=== PATIENT | female | born 1980 | race Caucasian/White ===

== ENCOUNTER → 2024-06-23 | Outpatient (CLI) | payer BC, SELFPAY ==
--- NOTE | 2024-06-23 16:30 | XR_ITS ---
Examination: CT brain head without contrast. 2-D sagittal coronal reconstructions Date and time of exam:June 23, 2024 1715 hours INDICATIONS: Headaches one month CTDI: vol (mGy):51.4 DLP: (mGycm):1017 Technique: Multiple CT axial sections of the brain have been obtained, 5 mm slice thickness. Contrast has not been administered. 2-D sagittal, coronal reconstructions have been obtained Low dose protocols were performed. One or more of the following dose reduction techniques were used; automated exposure control, adjustment of the mA and/or KV according to patient size, use of iterative reconstruction technique. Findings: No significant ventricular enlargement. Intra-axial or extra-axial hemorrhage density is not seen. No mass effect or midline shift Basal cisterns are not remarkable. Fourth ventricle is midline. 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
== END | disposition home or self-care (01) ==
LOC: CCTX 16:14
PROVIDERS: PCP Family Medicine; Referring Provider Registered Nurse; Visit Provider Registered Nurse
DX: R22.0 Localized swelling, mass and lump, head (principal)
CPT/HCPCS: 70450

== ENCOUNTER 2024-10-14 09:12 | Emergency (ER) | payer BC, SELFPAY ==
[2024-10-14 09:27] VITALS: BP 160/88; PULSE 80; RESP 18; TEMP 36.6; O2SAT 99; BMI 37.9
--- NOTE | 2024-10-14 09:31 | XR_ITS ---
Examination: Breast ultrasound, unilateral, left Date and time of exam: October 14, 2024 1011 hours INDICATIONS: Palpable lump in the left breast 10 days, patient being treated for mastitis Technique: Real-time aguilar scale ultrasonographic imaging performed left breast including all 4 quadrants as well as nipple retroareolar and axillary region. Findings: 9:00 isoechoic hyperechoic mass 3.1 x 0.7 x 1.9 cm, partially indistinct margins IMPRESSION: 9:00 mass as above, differential would include neoplastic mass, abscess, clinical correlation advised, short-term follow-up ultrasound recommended as well as diagnostic mammography
--- NOTE | 2024-10-14 09:31 | XR_ITS ---
Examination: PA lateral chest 2 views TECHNIQUE: Upright PA lateral chest 2 views Date and time: October 14, 2024 0952 hours INDICATIONS: Shortness of breath breast pain today FINDINGS: Subtle increased markings at the right base Normal heart size Intact osseous structures IMPRESSION: Suspicious for early right base pneumonia
--- NOTE | 2024-10-14 09:36 | PD.EDRME ---
Rapid Medical Screening Exam RME Arrival date/time: 10/14/24 09:12 44-year-old female presents to the emergency department today for complaint of left-sided breast pain reports a nodule to the left breast Chief Complaint: Skin/Abscess/Foreign Body Vital signs: Vital Signs Temperature 97.9 F 10/14/24 09:27 Pulse Rate 80 10/14/24 09:27 Respiratory Rate 18 10/14/24 09:27 Blood Pressure 160/88 H 10/14/24 09:27 Pulse Oximetry (%) 99 10/14/24 09:27 Oxygen Delivery Method Room Air 10/14/24 09:27
[2024-10-14 10:34] LABS: Basophils % (Auto) 1 % (0-2.5); Eosinophils # (Auto) 0.2 Thou/mm3 (0.0-0.5); Eosinophils % (Auto) 3 % (0-10); Hematocrit 40.4 % (36.0-46.0); Hemoglobin 14.6 g/dL (12.0-16.0); Immature Granulocytes % (Auto) 0 % (0-0); Immature Granulocytes Auto 0.02 Thou/mm3 (0.00-0.00); Lymphocytes # (Auto) 2.1 Thou/mm3 (1.0-4.8); Lymphocytes % (Auto) 26 % (10-50); Mean Corpuscular HGB Conc 36.1 g/dl (31.0-37.0); Mean Corpuscular Hemoglobin 31.2 pg (25.0-35.0); Mean Corpuscular Volume 86 fL (80-100); Monocytes # (Auto) 0.6 Thou/mm3 (0.0-0.8); Monocytes % (Auto) 8 % (0-12); Neutrophils # (Auto) 5.1 Thou/mm3 (1.8-7.7); Neutrophils % (Auto) 64 % (37-80); Nucleated Red Blood Cell % 0 /100 WBC (0); Platelet Count 201 Thou/mm3 (140-440); RDW Standard Deviation 38.9 fL (36.4-46.3); Red Blood Count 4.68 Miln/mm3 (4.00-5.20)
[2024-10-14 10:52] LABS: HCG,Qualitative Serum Negative
[2024-10-14 10:54] LABS: Alanine Aminotransferase 28 U/L (10-49); Albumin, Serum 4.5 gm/dL (3.5-5.0); Albumin/Globulin Ratio 1.5 (1.2-2.2); Alkaline Phosphatase 58 U/L (46-116); Anion Gap 7 (7-16); Aspartate Amino Transferase 19 U/L (0-34); BUN/Creatinine Ratio 11 Ratio (12-20); Bilirubin,Total 0.6 mg/dL (0.3-1.2); Blood Urea Nitrogen 9 mg/dL (9-23); C-Reactive Protein < 0.5 mg/dL (0.0-0.9); Calcium 8.7 mg/dL (8.3-10.6); Calcium (Corrected) 8.7 mg/dL (8.5-10.1); Carbon Dioxide 25.1 mMol/L (20.0-31.0); Chloride 107 mMol/L (98-107); Creatinine (Component) 0.8 mg/dL (0.6-1.3); Estimated Creatinine Clearance 99.5 mL/min (>60); Globulin 3.1 gm/dL (2.3-3.5); Glucose 98 mg/dL (74-106); Osmolality,Calculated 276 (275-295); Sodium 139 mMol/L (136-145); Total Protein 7.6 gm/dL (5.7-8.2); eGFR > 60 See Note
--- NOTE | 2024-10-14 12:19 | EDNOTE_ITS ---
ED General RME/HPI General Chief complaint: Skin/Abscess/Foreign Body Stated complaint: PAINFUL LUMP IN LEFT BREAST X 10 DAYS; SEEN PCP US Time Seen by Provider: 10/14/24 11:26 Arrival date/time: 10/14/24 09:12 44-year-old female presents to the ED with a complaint of left-sided lateral breast pain and medial nodule. Daughter was recently seen at [facility] for a breast abscess. She states she does have a small lateral area of erythema. She has been applying antibiotic ointment to it. She has previously had diagnostic mammos of her right breast which showed fibroglandular disease. Mode of arrival: ambulatory Limitations: no limitations RME / HPI RME / HPI narrative: 10/14/24 09:12 44-year-old female presents to the emergency department today for complaint of left-sided breast pain reports a nodule to the left breast Related Data Previous Rx's ?Medication ?Instructions ?Recorded clindamycin HCl 300 mg capsule 300 mg PO Q6H 10 days # 40 caps 10/14/24 meloxicam 15 mg tablet 15 mg PO QDAY #10 tabs 10/14 Allergies Allergy/AdvReac Type Severity Reaction Status Date / Time No Known Allergies Allergy Mild NONE Uncoded 10/14/24 09:18 Review of Systems Review of Systems Systems Reviewed: All systems reviewed, normal except as documented Past Medical History Past Medical History Comments PMH COMMENT: Fibroglandular breast. ED Exam Narrative Physical exam: 44-year-old female, no acute distress. Approximate 1.5 to 2 cm area of mild erythema with mild tenderness noted to the left lateral breast between 2 to 3 o'clock position. Small mass noted at 9 o'clock position medial left breast, Nontender. General Limitations: Present no limitations General appearance: Present alert and in no apparent distress Head Head exam: Present atraumatic and normal inspection Eye Eye exam: Present normal appearance; Absent scleral icterus or conjunctival injection ENT ENT exam: Present normal exam Neck Neck exam: Present normal inspection Chest Chest inspection: Present normal inspection Respiratory Respiratory exam: Absent respiratory distress Cardiovascular Cardiovascular exam: Present regular rate and normal rhythm Abdominal Exam Abdominal exam: Absent distention Extremities Exam Extremities exam: Present normal inspection Back Exam Back exam: Present full ROM Neurological Exam Neurological exam: Present alert and oriented X3 Psychiatric Psychiatric exam: Present normal affect and normal mood Skin Skin exam: Present warm, dry, intact, normal color and erythema (Approximate 1.5 to 2 cm area of mild erythema noted to the left lateral breast between 2 to 3 o'clock position. Freely movable nontender mass noted to the 9 o'clock position of left breast near areola.) Course Quality Measures none Orders Category Date Time Status US breast LT complete Stat Exams 10/14/24 09:31 Completed XR chest 2V Stat Exams 10/14/24 09:31 Completed CBC Stat Lab 10/14/24 10:21 Completed CRP [C-Reactive Protein] Stat Lab 10/14/24 10:21 Completed Comprehensive Metabolic Panel Stat Lab 10/14/24 10:21 Completed HCG,Qualitative Serum Stat Lab 10/14/24 10:21 Completed Vital Signs Vital signs: Vital Signs Temperature 97.9 F 10/14/24 09:27 Pulse Rate 80 10/14/24 09:27 Respiratory Rate 18 10/14/24 09:27 Blood Pressure 160/88 H 10/14/24 09:27 Pulse Oximetry (%) 99 10/14/24 09:27 Oxygen Delivery Method Room Air 10/14/24 09:27 Discharge Plan Plan Patient Disposition: HOME (Self Care) Discharge Disposition comment: Stable Prescriptions/Referrals Prescriptions/Med Rec: New clindamycin HCl 300 mg capsule 300 mg PO Q6H 10 Days Qty: 40 0RF meloxicam 15 mg tablet 15 mg PO QDAY Qty: 10 0RF Referrals: Margarette Polanco NP [Primary Care Provider] - In 1 week Problem List Clinical Impression: Left breast mass, Abscess of skin or subcutaneous tissue Impression comment: Left breast mass versus abscess. Patient/Caregiver Discharge Instructions Education Materials: ED Abscess Antibiotic ..., ED Breast Lump, Uncertain Cause Additional Instructions: Keep your appointment for the diagnostic mammo already scheduled on 10/26/2024. Due to the upcoming holiday, your appointment is likely the earliest you can be seen. Take the antibiotics as prescribed and complete the course even though you may be feeling better. Follow through with all upcoming appointments. Follow-up with your primary care physician in 24 to 48 hours. Return to the ED for any new or worsening symptoms. Print Language: [employer] Stand Alone Forms: Marci Award Info., Patient Portal Info Letter PA/COMPUTER TECHNOLOGY INSTRUCTOR Supervising Physician PA/TERRI Supervising Physician: Dr Claus DUMONT Clinical Information Provided by patient Medical Records Reviewed [facility] Meds/Rx Considered, not Ordered None Labs/Rad/Tests considered, not Ordered None Chronic Illness/Social Conditions which may negatively complicate care or outcome(s)-explain: None or not applicable EKG EKG not done Lab Interpretation Labs: interpreted by ma Lab(s) interpretation(s): Labs reveal a normal white count with normal H&H. CMP is normal, CRP is normal. Imaging Provider imaging interpretation(s): Questionable right lower lobe pneumonia. Radiology reports / interpretation(s): Left Breast US: Findings: 9:00 isoechoic hyperechoic mass 3.1 x 0.7 x 1.9 cm, partially indistinct margins IMPRESSION:9:00 mass as above, differential would include neoplastic mass, abscess, clinical correlation advised, short-term follow-up ultrasound recommended as well as diagnostic mammography Medication Administration(s) none Diagnosis Differential diagnosis: Differential diagnosis includes neoplastic mass, abscess, mastitis. Differential dx and/or dx ruled out: Unable Most likely dx, and/or detailed dx discussion: Left breast mass. Dispositon Disposition: Discharge Home
[2024-10-14 13:24] VITALS: BP 129/85; PULSE 75; RESP 17; TEMP 36.6; O2SAT 99
== END 2024-10-14 13:33 | disposition home or self-care (01) ==
PROVIDERS: Nurse Practitioner Primary Care; Emergency Provider Emergency Medicine; PCP Registered Nurse
DX: N63.25 Unspecified lump in the left breast, overlapping quadrants (principal)
CPT/HCPCS: 36415; 71046; 76641; 80053; 84703; 85025; 86140; 99284

== ENCOUNTER → 2024-10-26 | Outpatient (CLI) | payer BC, SELFPAY ==
--- NOTE | 2024-10-26 11:30 | XR_ITS ---
Examination: Diagnostic digital mammography, bilateral Computer aided detection 3-D breast Tomosynthesis, bilateral Date and time of exam: October 26, 2024 1114 hours Compared to mammograms dating to November 16, 2015 INDICATIONS: Left breast lump noticed beginning 2 months ago Technique: Nonmagnified MLO, CC views of the breasts to been obtained, reconstructed from 3-D Tomosynthesis images. R2 computer aided detection program utilized for evaluation of suspicious masses and/or abnormal calcifications. 3-D Tomosynthesis images obtained. Findings: Scattered areas of fibroglandular density. Architectural distortion at the palpable lump site upper left breast Impression: BI-RADS Category 0: Incomplete: Need additional imaging evaluation Suspicious for architectural distortion at the palpable left side upper left breast, this patient return should return for repeat left breast sonography with the radiologist in attendance.
== END | disposition home or self-care (01) ==
LOC: CDIM 10:56
PROVIDERS: PCP Registered Nurse; Referring Provider Registered Nurse; Visit Provider Registered Nurse
DX: R92.8 Other abnormal and inconclusive findings on diagnostic imaging of breast (principal)
CPT/HCPCS: 77062; 77066; G0279

== ENCOUNTER → 2024-11-02 | Outpatient (CLI) | payer BC, SELFPAY ==
[2024-11-02 16:06] LABS: Basophils # (Auto) 0.1 Thou/mm3 (0.0-0.2); Basophils % (Auto) 1 % (0-2.5); Eosinophils # (Auto) 0.3 Thou/mm3 (0.0-0.5); Eosinophils % (Auto) 4 % (0-10); Hematocrit 37.3 % (36.0-46.0); Hemoglobin 13.5 g/dL (12.0-16.0); Immature Granulocytes % (Auto) 1 % (0-0); Immature Granulocytes Auto 0.06 Thou/mm3 (0.00-0.00); Lymphocytes # (Auto) 2.7 Thou/mm3 (1.0-4.8); Lymphocytes % (Auto) 31 % (10-50); Mean Corpuscular HGB Conc 36.2 g/dl (31.0-37.0); Mean Corpuscular Hemoglobin 31.3 pg (25.0-35.0); Mean Corpuscular Volume 87 fL (80-100); Monocytes # (Auto) 0.8 Thou/mm3 (0.0-0.8); Monocytes % (Auto) 9 % (0-12); Neutrophils # (Auto) 4.7 Thou/mm3 (1.8-7.7); Neutrophils % (Auto) 54 % (37-80); Nucleated Red Blood Cell % 0 /100 WBC (0); Platelet Count 208 Thou/mm3 (140-440); RDW Standard Deviation 38.7 fL (36.4-46.3); Red Blood Count 4.31 Miln/mm3 (4.00-5.20); White Blood Count 8.6 Thou/mm3 (3.6-11.0)
== END | disposition home or self-care (01) ==
LOC: COPL 14:52
PROVIDERS: PCP Family Medicine; Referring Provider Physician Assistant; Visit Provider Physician Assistant
DX: N61.22 Granulomatous mastitis, left breast (principal)
CPT/HCPCS: 36415; 85025

== ENCOUNTER → 2024-11-06 | Outpatient (CLI) | payer BC, SELFPAY ==
--- NOTE | 2024-11-06 10:30 | XR_ITS ---
Examination: Breast ultrasound, unilateral, left complete Date and time of exam: November 06, 2024 1024 hours INDICATIONS: Mammogram October 26, 2024 architectural distortion upper left breast Technique: Real-time aguilar scale ultrasonographic imaging performed left breast including all 4 quadrants as well as nipple retroareolar and axillary region. Findings: 9:00 nodule isoechoic 18 x 7 x 12 mm IMPRESSION: BI-RADS Category 3: Probably benign findings One additional 6 month left breast sonogram follow-up is needed to document stability of 9:00 nodule described above
== END | disposition home or self-care (01) ==
PROVIDERS: PCP Registered Nurse; Referring Provider Registered Nurse; Visit Provider Registered Nurse
DX: N63.25 Unspecified lump in the left breast, overlapping quadrants (principal)
CPT/HCPCS: 76641